=== PATIENT | female | born 1940 | race Two or more races ===

== ENCOUNTER 2016-09-06 07:38 | Emergency (ER) | payer MEDICARE, MEDICAID ==
[~2016-09-06] VITALS: Ht 162.6 cm; Wt 75.0 kg
[2016-09-06 07:42] VITALS: BP 191/87
[2016-09-06] MEDS ORDERED: ACETAMINOPHEN 325MG TABLET PO ONE (08:15)
== END 2016-09-06 08:52 | disposition home or self-care (01) ==
LOC: ER 08:05
DX: S40.021A Contusion of right upper arm, initial encounter (principal); S80.11XA Contusion of right lower leg, initial encounter; E11.9 Type 2 diabetes mellitus without complications; E78.00 Pure hypercholesterolemia, unspecified; I10 Essential (primary) hypertension; V09.9XXA Pedestrian injured in unspecified transport accident, initial encounter; Y93.89 Activity, other specified; Y92.89 Other specified places as the place of occurrence of the external cause; Y99.8 Other external cause status
CPT/HCPCS: 99283